=== PATIENT | female | born 1950 | race Two or more races ===

== ENCOUNTER 2018-06-14 06:36 | Emergency (ER) | payer SELFPAY ==
[~2018-06-14] VITALS: Ht 160 cm; Wt 90.7 kg
[2018-06-14 06:45] VITALS: Ht 160 cm; Wt 90.7 kg
[2018-06-14 08:26] VITALS: BP 144/89
== END 2018-06-14 08:26 | disposition home or self-care (01) ==
LOC: ED 06:36
DX: S16.1XXA Strain of muscle, fascia and tendon at neck level, initial encounter (principal); I10 Essential (primary) hypertension; E11.9 Type 2 diabetes mellitus without complications; V49.49XA Driver injured in collision with other motor vehicles in traffic accident, initial encounter; Y93.I9 Activity, other involving external motion; Y92.413 State road as the place of occurrence of the external cause; Y99.8 Other external cause status